=== PATIENT | male | born 1985 | race Caucasian/White ===

== ENCOUNTER 2017-05-08 11:22 | Inpatient (IN) | payer OTHER ==
[2017-05-08] MEDS ORDERED: MAG HYDROX/AL HYDROX/SIMETH 30 ML LIQUID UDC PO PRN (20:00)
[2017-05-08] MEDS ORDERED: HYDROXYZINE PAMOATE 25 MG CAPSULE PO PRN (20:00)
[2017-05-08] MEDS ORDERED: DICYCLOMINE HCL 20 MG TABLET PO PRN (20:00)
[2017-05-08] MEDS ORDERED: LORAZEPAM 2 MG/1 ML VIAL IM PRN (20:00)
[2017-05-08] MEDS ORDERED: ONDANSETRON 4 MG/2 ML VIAL IM PRN (20:00)
[2017-05-08] MEDS ORDERED: LOPERAMIDE HCL 2 MG CAPSULE PO PRN ×2 (20:00)
[2017-05-08] MEDS ORDERED: METHOCARBAMOL 750 MG TABLET PO PRN (20:00)
[2017-05-08] MEDS ORDERED: MIRALAX 17 GM POWD.PACK PO PRN (20:00)
[2017-05-08] MEDS ORDERED: ONDANSETRON ODT 4 MG TAB.RAPDIS SL PRN (20:00)
[2017-05-08] MEDS ORDERED: LORAZEPAM 1 MG TABLET PO PRN ×2 (20:00)
[2017-05-08] MEDS ORDERED: IBUPROFEN 600 MG TABLET PO PRN (20:00)
[2017-05-08] MEDS ORDERED: diphenhydrAMINE 50 MG CAPSULE PO PRN (20:00)
[2017-05-08] MEDS ORDERED: ACETAMINOPHEN 325 MG TABLET PO PRN (20:00)
[2017-05-08] MEDS ORDERED: MAGNESIUM HYDROXIDE 30 ML LIQUID UDC PO PRN (20:00)
[2017-05-08] MEDS ORDERED: hydrALAZINE HCL 25 MG TABLET PO PRN (20:00)
[2017-05-08] MEDS ORDERED: THIAMINE HCL 200 MG/2 ML VIAL IM ONE (20:00)
[2017-05-08 20:36] LABS: BASOPHILS # (AUTO) 0.3 K/uL (0.0-8.0); BASOPHILS % (AUTO) 2.3 % (0.0-2.0); EOSINOPHILS % (AUTO) 0.4 % (0.0-7.0); HEMOGLOBIN 15.3 G/DL (14.0-18.0); LYMPHOCYTES % (AUTO) 17.7 % (20.5-51.5); MEAN CORPUSCULAR HEMOGLOBIN 29.3 UUG (27.0-31.0); MEAN CORPUSCULAR HGB CONC 33 g/dL (32.0-37.0); MEAN CORPUSCULAR VOLUME 87.9 FL (82.0-92.0); MONOCYTES # (AUTO) 1.2 K/UL (0.1-1.30); MONOCYTES % (AUTO) 10.3 % (0.0-11.0); NEUTROPHILS % (AUTO) 69.3 % (38.5-71.5); PLATELET COUNT (AUTO) 257 K/UL (150-450); RED BLOOD CELL COUNT(AUTO) 5.23 MIL/UL (4.7-6.1); WHITE BLOOD COUNT (AUTO) 11.5 K/UL (4.0-11.2)
[2017-05-08 20:53] LABS: ETHANOL < 3 MG/DL (0-0)
[2017-05-08 20:58] LABS: CARBON DIOXIDE 26 mmol/L (21-32); CHLORIDE 101 mmol/L (98-107); CREATININE 1.2 mg/dL (0.6-1.3); GLUCOSE 116 mg/dL (74-106); POTASSIUM 3.2 mmol/L (3.5-5.1); UREA NITROGEN, BLOOD 15 mg/dL (7-18)
[2017-05-08 20:59] LABS: ALANINE AMINOTRANSFERASE 36 U/L (16-63); ALKALINE PHOSPHATASE 73 U/L (50-136); AMYLASE 37 U/L (25-115); ASPARTATE AMINOTRANSFERASE 58 U/L (15-37); BILIRUBIN,TOTAL 1.1 mg/dL (0.2-1.0); MAGNESIUM 1.9 mg/dL (1.8-2.4)
[2017-05-08] MEDS ORDERED: LORAZEPAM 1 MG TABLET PO ONE (21:00)
[2017-05-08 21:08] LABS: LIPASE 82 U/L (73-393)
[2017-05-08 21:25] LABS: THYROID STIMULATING HORMONE 0.792 mIU/mL (0.358-3.740)
[2017-05-09 08:43] LABS: *AMPHETAMINE, URINE POSITIVE (NEGATIVE); *BARBITURATE, URINE NEGATIVE (NEGATIVE); *CANNABINOID, URINE NEGATIVE (NEGATIVE); *COCCAINE, URINE NEGATIVE (NEGATIVE); *OPIATE, URINE POSITIVE (NEGATIVE); *PHENCYCLIDINE SCREEN,URINE NEGATIVE (NEGATIVE)
[2017-05-09] MEDS ORDERED: MULTIVITAMINS,THERAPEUTIC TABLET PO SCH (09:00)
[2017-05-09] MEDS ORDERED: BUPRENORPHINE HCL 2 MG TAB.SUBL SL SCH (09:00)
[2017-05-09] MEDS ORDERED: THIAMINE HCL 100 MG TABLET PO SCH (09:00)
[2017-05-09] MEDS ORDERED: TUBERCULIN,PURIF.PROT.DERIV. 5 TU/0.1 ML TEST ID ONE (09:00)
[2017-05-09] MEDS ORDERED: FOLIC ACID 1 MG TABLET PO SCH (09:00)
[2017-05-09] MEDS ORDERED: GABAPENTIN 300 MG CAPSULE PO SCH (09:00)
[2017-05-09] MEDS ORDERED: LORAZEPAM 1 MG TABLET PO SCH (09:00)
[2017-05-09] MEDS ORDERED: ASPI81TA31 PO (11:27)
[2017-05-10] MEDS ORDERED: BUPRENORPHINE HCL 2 MG TAB.SUBL SL SCH (09:00)
[2017-05-10] MEDS ORDERED: LORAZEPAM 1 MG TABLET PO SCH (09:00)
[2017-05-11] MEDS ORDERED: LORAZEPAM 1 MG TABLET PO SCH (09:00)
[2017-05-11] MEDS ORDERED: BUPRENORPHINE HCL 2 MG TAB.SUBL SL SCH ×2 (09:00→15:00)
[2017-05-12] MEDS ORDERED: LORAZEPAM 1 MG TABLET PO SCH (09:00)
[2017-05-12] MEDS ORDERED: BUPRENORPHINE HCL 2 MG TAB.SUBL SL SCH (09:00)
[2017-05-13] MEDS ORDERED: BUPRENORPHINE HCL 2 MG TAB.SUBL SL SCH (09:00)
[2017-05-13] MEDS ORDERED: LORAZEPAM 1 MG TABLET PO SCH (09:00)
== END 2017-05-08 19:30 | disposition other institution (70) | DRG 897 ==
LOC: SRC 18:43
PROVIDERS: ADMIT Internal Medicine; ATTEND Internal Medicine
PROC: HZ2ZZZZ Detoxification Services for Substance Abuse Treatment (ICD-10-PCS; principal; 2017-05-08)
DX: F10.220 Alcohol dependence with intoxication, uncomplicated (principal); I20.1 Angina pectoris with documented spasm; F13.229 Sedative, hypnotic or anxiolytic dependence with intoxication, unspecified; Y90.9 Presence of alcohol in blood, level not specified; F11.229 Opioid dependence with intoxication, unspecified; F17.210 Nicotine dependence, cigarettes, uncomplicated; B19.20 Unspecified viral hepatitis C without hepatic coma; F41.9 Anxiety disorder, unspecified; F39 Unspecified mood [affective] disorder; Z59.1 Inadequate housing; F15.129 Other stimulant abuse with intoxication, unspecified
CPT/HCPCS: 80307; 83690; 83735; 84443; 85025; 86592; 86705; 86803; 87340; 87806; G0480

== ENCOUNTER 2017-05-08 19:46 | Inpatient (IN) | payer OTHER ==
[~2017-05-08] VITALS: Ht 180.3 cm; Wt 1.4 kg
[2017-05-08] MEDS ORDERED: LORAZEPAM 2 MG/1 ML VIAL IV ONE ×2 (20:30→21:45)
[2017-05-08] MEDS ORDERED: ASPIRIN 325 MG TABLET PO ONE (20:30)
--- NOTE | 2017-05-08 20:34 | NUR ---
Patient BIB [facility] c/o CP. Patient is very hyperactive, withdrawing from medications, unable to remain still. [facility] will remain with patient during evaluation. To room 5B.
[2017-05-08 20:39] LABS: WHITE BLOOD COUNT (AUTO) 11.5 K/UL (4.0-11.2)
[2017-05-08 20:40] LABS: BASOPHILS % (AUTO) 2.3 % (0.0-2.0); EOSINOPHILS % (AUTO) 0.4 % (0.0-7.0); HEMOGLOBIN 15.3 G/DL (14.0-18.0); LYMPHOCYTES % (AUTO) 17.7 % (20.5-51.5); MEAN CORPUSCULAR HEMOGLOBIN 29.3 UUG (27.0-31.0); MEAN CORPUSCULAR HGB CONC 33 g/dL (32.0-37.0); MEAN CORPUSCULAR VOLUME 87.9 FL (82.0-92.0); MONOCYTES % (AUTO) 10.3 % (0.0-11.0); NEUTROPHILS % (AUTO) 69.3 % (38.5-71.5); PLATELET COUNT (AUTO) 257 K/UL (150-450); RED BLOOD CELL COUNT(AUTO) 5.23 MIL/UL (4.7-6.1)
[2017-05-08 20:41] LABS: BASOPHILS # (AUTO) 0.3 K/uL (0.0-8.0); MONOCYTES # (AUTO) 1.2 K/UL (0.1-1.30)
[2017-05-08] MEDS ORDERED: IV NORMAL SALINE 1000 ML BAG IV ONE ×2 (20:45→23:15)
[2017-05-08] MEDS ORDERED: ASPIRIN 325 MG TABLET ONE (20:49)
[2017-05-08] MEDS ORDERED: LORAZEPAM 2 MG/1 ML VIAL ONE ×2 (20:50→21:48)
[2017-05-08 20:51] LABS: CREATININE 1.2 mg/dL (0.6-1.3); POTASSIUM 3.3 mmol/L (3.5-5.1)
[2017-05-08 21:04] LABS: BILIRUBIN,DIRECT 0.2 mg/dL (0.0-0.2); BILIRUBIN,TOTAL 1.1 mg/dL (0.2-1.0); TOTAL PROTEIN, SERUM 8.1 g/dL (6.4-8.2)
[2017-05-08] MEDS ORDERED: IOHEXOL 350 100 ML INFUS..BTL ONE (21:22)
[2017-05-08] MEDS ORDERED: IV NORMAL SALINE 250 ML IV ONE (21:22)
[2017-05-08] MEDS ORDERED: NORMAL SALINE FLUSH 10 ML DISP.SYRIN ONE (21:22)
--- NOTE | 2017-05-08 22:10 | NUR ---
Patient accidentally removed IV line, ERMD notified, New IV placed.
[2017-05-08] MEDS ORDERED: ONDANSETRON 4 MG/2 ML VIAL IV ONE (22:30)
[2017-05-08] MEDS ORDERED: ONDANSETRON 4 MG/2 ML VIAL ONE (22:35)
[2017-05-08 23:24] LABS: *BILIRUBIN,URIN 2+ (NEGATIVE); *BLOOD, URINE NEGATIVE (NEGATIVE); *CLARITY,URINE CLEAR (CLEAR); *COLOR,URINE AMBER (YELLOW); *KETONES,URINE TRACE (NEGATIVE); *PROTEIN,URINE 2+ (NEGATIVE); LEUKOCYTE ESTERASE ,URINE NEGATIVE (NEGATIVE); NITRITE, URINE NEGATIVE (NEGATIVE); PH,URINE 5.5 (5.0-8.0); UGLUCOSE NEGATIVE (NEGATIVE)
--- NOTE | 2017-05-08 23:37 | NUR ---
Patient continually moving around in room. Unable to sit still at this time for CT scan still.
[2017-05-08 23:38] LABS: BACTERIA,URINE FEW /HPF (NONE SEEN); RBC,URINE 0-3 /HPF (0-3); SQUAMOUS EPITHELIAL CELL,UR FEW /HPF (NONE SEEN); WBC,URINE 0-3 /HPF (0-3)
[2017-05-08] MEDS ORDERED: OLANZAPINE 10 MG VIAL IM ONE (23:56)
[2017-05-09] MEDS ORDERED: MAGNESIUM HYDROXIDE 30 ML LIQUID UDC PO PRN
[2017-05-09] MEDS ORDERED: Z GUARD REMEDY PASTE 57 GM TUBE TOP PRN
[2017-05-09] MEDS ORDERED: diphenhydrAMINE 50 MG/1 ML VIAL IV ONE
[2017-05-09] MEDS ORDERED: OLANZAPINE 10 MG VIAL IM ONE
[2017-05-09] MEDS ORDERED: ONDANSETRON 4 MG/2 ML VIAL IV PRN
[2017-05-09] MEDS ORDERED: ACETAMINOPHEN 325 MG TABLET PO PRN
[2017-05-09] MEDS ORDERED: NITROGLYCERIN 0.4 MG/TAB BOTTLE SL PRN
[2017-05-09] MEDS ORDERED: HYDROCODONE/APAP 5-325MG TABLET PO PRN
[2017-05-09] MEDS ORDERED: diphenhydrAMINE 50 MG/1 ML VIAL ONE (00:05)
--- NOTE | 2017-05-09 01:00 | NUR ---
nsg: pt received fr er, awake but confused, agitated, delusional. director security risk management came up with pt and er nurse. pt anxious, shaky, flushed. left on the aurora chair. tele, ST. unable to obtain bp bec pt continously moving. 1:1 sitter at the bedside.
--- NOTE | 2017-05-09 01:12 | NUR ---
Pt. admitted to TELE, under care of Dr. Hanley Belongs List completed
[2017-05-09] MEDS: LORAZEPAM 2 MG/1 ML VIAL IV PRN ×3 (01:43→17:24)
[2017-05-09] MEDS ORDERED: POTASSIUM CHLORIDE 20 MEQ TAB.PRT.SR PO ONE (01:45)
[2017-05-09] MEDS ORDERED: LORAZEPAM 2 MG/1 ML VIAL ONE (01:51)
[2017-05-09] MEDS: IV NS 1000 ML 1,000 ML IV PRN ×2 (02:30→14:07)
[2017-05-09] MEDS ORDERED: HALOPERIDOL LACTATE 5 MG/1 ML VIAL IM STA (03:44)
--- NOTE | 2017-05-09 03:45 | NUR ---
nsg: pt awake, more combative, anxious, trying to get out of the aurora chair and wants to leave. code kath called. notified Dr. Escobar, received order for haldol 5mg im x 1, if med does not work, may give addtl 5mg. off tele, cont to monitor.
[2017-05-09] MEDS ORDERED: HALOPERIDOL LACTATE 5 MG/1 ML VIAL ONE (03:55)
--- NOTE | 2017-05-09 04:20 | NUR ---
nsg: pt asleep now. tele, SR hr 100. 1:1 sitter at the bedside.
[2017-05-09 04:41] VITALS: BP 119/78
--- NOTE | 2017-05-09 05:35 | NUR ---
nsg: pt asleep at this time. sitter at the bedside. cont to monitor.
--- NOTE | 2017-05-09 08:00 | NUR ---
Pt waking up. IV on right hand intact. IV infusing as ordered. Pt had good appetite for breakfast. Pt hallucinating and talking to the wall about "why he was not invited by his friends?" Asked who he was talking to he said "my friend right here." and point to the wall. Attempted to reorient patient to time and place. Pt cooperative on blood draws and talking his pills. Pt denies any c/o pain. 1:1 sitter at bedside discussed importance of fall precautions and proper pain management for pt and notifiy nursing of any cp - pt agreeable with plan of care.
[2017-05-09] MEDS: PANTOPRAZOLE SODIUM 40 MG TABLET.DR PO SCH (08:11)
[2017-05-09] MEDS: ASPIRIN 81 MG TAB.CHEW PO SCH (08:11)
--- NOTE | 2017-05-09 08:15 | NUR ---
Pt starting to become restless and attempting to pull out IV tubes. Wrapped IV tube with kerlix, decreased stimuli, offered urinal, and distracted pt with TV. will monitor pt 1:1 at bedside.
--- NOTE | 2017-05-09 08:51 | NUR ---
Pt pulled IV out. Restarted IV on left F/A 20gauge. Prior interventions non effective. Ativan given for restlessness. Will monitor pt. Sb applied and got Telephone order from DR LINDA Avendaño.
--- NOTE | 2017-05-09 09:00 | NUR ---
Spoke with extension worker for pt evaluation for crisis team? Awaiting for psych consult as well.
[2017-05-09 10:24] LABS: BASOPHILS % (AUTO) 0.4 % (0.0-2.0); HEMOGLOBIN 14.2 G/DL (14.0-18.0); LYMPHOCYTES # (AUTO) 0.8 K/UL (0.8-4.8); MEAN CORPUSCULAR HGB CONC 33 g/dL (32.0-37.0); MONOCYTES # (AUTO) 0.6 K/UL (0.1-1.30); MONOCYTES % (AUTO) 8.6 % (0.0-11.0)
[2017-05-09 10:27] LABS: EOSINOPHILS # (AUTO) 0.1 K/uL (0.0-0.7); EOSINOPHILS % (AUTO) 0.7 % (0.0-7.0); LYMPHOCYTES % (AUTO) 11.2 % (20.5-51.5); MEAN CORPUSCULAR HEMOGLOBIN 29.2 UUG (27.0-31.0); MEAN CORPUSCULAR VOLUME 88.7 FL (82.0-92.0); NEUTROPHILS % (AUTO) 79.1 % (38.5-71.5); PLATELET COUNT (AUTO) 229 K/UL (150-450); RED BLOOD CELL COUNT(AUTO) 4.85 MIL/UL (4.7-6.1)
[2017-05-09 10:30] LABS: WHITE BLOOD COUNT (AUTO) 7.5 K/UL (4.0-11.2)
[2017-05-09 10:42] LABS: MAGNESIUM 2.1 mg/dL (1.8-2.4); PHOSPHOROUS 3.6 mg/dL (2.5-4.9)
[2017-05-09 11:00] LABS: THYROID STIMULATING HORMONE 0.404 mIU/mL (0.358-3.740)
[2017-05-09] MEDS ORDERED: ASPI81TA31 PO (11:27)
--- NOTE | 2017-05-09 12:00 | NUR ---
Pt is in no acute distress pt sleeping. Call light is within reach.
[2017-05-09 14:00] VITALS: BP 120/81
[2017-05-09] MEDS ORDERED: IV NS 1000 ML 1,000 ML IV PRN (15:15)
[2017-05-09 15:55] VITALS: BP 104/83
--- NOTE | 2017-05-09 17:24 | NUR ---
Pt started to get oob and hitting sitter at bedside. Decreased stimuli, talk with the pt on what he wants - pt is hallucinating and started talking to the wall again. Distracted pt but all prior interventions was not effective. Ativan given. b/p 118/78- HR 85 - resp 18. Will continue to monitor pt. 1:1 sitter at bedside.
--- NOTE | 2017-05-09 18:42 | NUR ---
Pt is sleeping resp 18. Pt is in no acute distress. Pt refused to go back to bed and wants to stay on the Janak chair.
--- NOTE | 2017-05-09 19:30 | NUR ---
nsg: pt received sitting on the aurora chair, sleeping. tele, SR. 1:1 sitter at the bedside for safety. on cont ivf. cont to monitor.
[2017-05-09 20:02] VITALS: BP 119/70
--- NOTE | 2017-05-09 21:00 | NUR ---
nsg: pt woke up, transferred to bed. requested food. refused ivf. cont to monitor.
[2017-05-10] VITALS: BP 123/84
--- NOTE | 2017-05-10 | NUR ---
nsg: pt comfortable sleeping in bed. cont to monitor.
[2017-05-10 04:00] VITALS: BP 115/82
--- NOTE | 2017-05-10 05:31 | NUR ---
nsg: all needs attended. no acute distress noted. tele, SR. 1:1 sitter at the bedside.
[2017-05-10] MEDS: PANTOPRAZOLE SODIUM 40 MG TABLET.DR PO SCH (06:28)
[2017-05-10 06:41] LABS: BASOPHILS % (AUTO) 0.4 % (0.0-2.0); EOSINOPHILS # (AUTO) 0.1 K/uL (0.0-0.7); EOSINOPHILS % (AUTO) 1.7 % (0.0-7.0); HEMATOCRIT 40.4 % (40-50); HEMOGLOBIN 13.7 G/DL (14.0-18.0); LYMPHOCYTES # (AUTO) 1.4 K/UL (0.8-4.8); LYMPHOCYTES % (AUTO) 18.9 % (20.5-51.5); MEAN CORPUSCULAR HEMOGLOBIN 30.3 UUG (27.0-31.0); MEAN CORPUSCULAR HGB CONC 34 g/dL (32.0-37.0); MEAN CORPUSCULAR VOLUME 89.5 FL (82.0-92.0); MONOCYTES # (AUTO) 0.6 K/UL (0.1-1.30); MONOCYTES % (AUTO) 8.8 % (0.0-11.0); NEUTROPHILS # (AUTO) 5.1 K/UL (1.8-8.9); NEUTROPHILS % (AUTO) 70.2 % (38.5-71.5); PLATELET COUNT (AUTO) 235 K/UL (150-450); RED BLOOD CELL COUNT(AUTO) 4.51 MIL/UL (4.7-6.1); WHITE BLOOD COUNT (AUTO) 7.2 K/UL (4.0-11.2)
[2017-05-10 06:51] LABS: MAGNESIUM 1.9 mg/dL (1.8-2.4); PHOSPHOROUS 2.4 mg/dL (2.5-4.9)
--- NOTE | 2017-05-10 07:30 | NUR ---
Sleeping, not in distress. 1:1 sitter at bedside. IVF off. Mittens off.
[2017-05-10] MEDS: ASPIRIN 81 MG TAB.CHEW PO SCH (08:24)
[2017-05-10 11:38] VITALS: BP 112/80
[2017-05-10] MEDS ORDERED: NEUTRA PHOS PACKET PO ONE (13:30)
--- NOTE | 2017-05-10 14:37 | NUR ---
With discharge order to [facility]. Saline lock removed. DC instruction given to patient, verbalized understanding. Report given to Ashia of [facility]. Discharge per wheelchair in fair condition, not in distress
== END 2017-05-10 14:40 | DRG 918 ==
LOC: ER 19:50 → TELE 05-09 00:01 → MED 05-10 11:23
DX: T40.1X1A Poisoning by heroin, accidental (unintentional), initial encounter (principal); M62.82 Rhabdomyolysis; T43.621A Poisoning by amphetamines, accidental (unintentional), initial encounter; F10.20 Alcohol dependence, uncomplicated; F19.10 Other psychoactive substance abuse, uncomplicated; E87.6 Hypokalemia; Y90.9 Presence of alcohol in blood, level not specified; Z86.19 Personal history of other infectious and parasitic diseases; I45.10 Unspecified right bundle-branch block; F41.9 Anxiety disorder, unspecified; T51.91XA Toxic effect of unspecified alcohol, accidental (unintentional), initial encounter; F13.10 Sedative, hypnotic or anxiolytic abuse, uncomplicated; Y92.009 Unspecified place in unspecified non-institutional (private) residence as the place of occurrence of the external cause; R07.89 Other chest pain; F17.200 Nicotine dependence, unspecified, uncomplicated
CPT/HCPCS: 36415; 70030-TC; 71010; 83735; 84100; 84443; 85025; 87040; 93005; 93307; J1200; J1630; J2060; J2358; J2405; J3490; J7050; Q9967

== ENCOUNTER 2017-05-09 07:28 | Inpatient (IN) | payer OTHER ==
[~2017-05-09] VITALS: Ht 180.3 cm; Wt 86.2 kg
[2017-05-09] MEDS ORDERED: ASPI81TA31 PO (11:27)
--- NOTE | 2017-05-10 14:45 | NUR ---
PRE-ADMISSION NOTE Intake assessment completed, patient is a 31 year old male, alert and oriented. Prior to admission to [facility] patient was admitted to med Surg unit 2nd floor [facility] for c/o chest pain. Patient was discharged today. Currently patient denies any chest pain. Patient with vital signs: bp: 141/95 heart rate: 94, t: 98.0, o2 sat: 96%. Patient weights 5 feet 11 inches and weighs 190 lbs. Patient denies pain/discomfort. Patient denies any drug allergies. Patient reports he is here to detox off of: Xanax, heroin, methamphetamine and alcohol. Patient was educated regarding unit protocols and policies, with good verbal understanding. Patient calm and cooperative, patient brought unknown home medications, prescriptions bottle with unknown pills in them, denies taking any home medications.
[2017-05-10 15:52] LABS: *AMPHETAMINE, URINE POSITIVE (NEGATIVE); *BARBITURATE, URINE NEGATIVE (NEGATIVE); *CANNABINOID, URINE NEGATIVE (NEGATIVE); *COCCAINE, URINE NEGATIVE (NEGATIVE); *OPIATE, URINE POSITIVE (NEGATIVE); *PHENCYCLIDINE SCREEN,URINE NEGATIVE (NEGATIVE)
--- NOTE | 2017-05-10 16:19 | NUR ---
ADMISSION Patient was admitted from 2nd floor medical surgical unit at [facility], d/t c/o chest pain, Was discharged 05/10/2017 at 1430. Patient arrived to [facility] recovery unit at 1500, patient is a 31 year old male from [place], currently residing a sober living home. Patient oriented to unit and to room, education regarding call light use was provided. Patient denies any drug or food allergies. Patients body assessment completed, noted with intact skin, noted with small bruise [id number] on left hip area. Body search completed by male intake, no contraband found. Patient is alert and oriented x4. reports he is here to detox off of: Xanax-6mg daily by mouth for 4 weeks, last used 6mg on 05/09/2017. heroin-1 gram daily IV for 4 weeks, last used 1 gram on 05/09/2017; methamphetamine 0.5grams daily for 4 weeks, last used 05/09/2017; etoh- 1 pint of whiskey daily for 4 weeks, last used 05/09/2017. Patient denies taking any home medications. Patient reports he was diagnosed with anxiety and depression at the age of 16, reports his psychiatrist is Dr. Graves in [place], does not know the phone number or name of office. Reports his Primary care physician is Dr. Ernie Gustafson in [place], does not know the phone number of name of office. Patient reports history of seizure, reports 7 years ago he had a seizure d/t benzodiazepine withdrawal. Patient current in bed, presenting with: heart rate of 94, c/o chills, difficulty sitting still, severe bone and joint aches, moist eyes, tremors that can be felt but not seen, anxiety, and goosebump, barely sweating, mild agitation and mild head fullness with ciwa score of: 9. and cow score of: 15. Patients pupils are equal and reactive to light, 3mm. Abdomen is soft and non distended. bowel sounds heard in all quadrants. Patients respirations are even and unlabored, no sob, lungs clear upon auscultation. Patient was seen by Dr. Santana at 1545. Psychiatrist aware of new admission,safety measures in place. call light with in reach, will continue to monitor closely.
[2017-05-10 16:30] VITALS: BP 108/67
[2017-05-10] MEDS ORDERED: LORAZEPAM 2 MG/1 ML VIAL IM PRN (16:30)
[2017-05-10] MEDS ORDERED: ONDANSETRON 4 MG/2 ML VIAL IM PRN (16:30)
[2017-05-10] MEDS ORDERED: IBUPROFEN 400 MG TABLET PO PRN (16:30)
[2017-05-10] MEDS ORDERED: DICYCLOMINE HCL 20 MG TABLET PO PRN (16:30)
[2017-05-10] MEDS ORDERED: MIRALAX 17 GM POWD.PACK PO PRN (16:30)
[2017-05-10] MEDS ORDERED: CLONIDINE HCL 0.1 MG TABLET PO PRN (16:30)
[2017-05-10] MEDS ORDERED: LOPERAMIDE HCL 2 MG CAPSULE PO PRN ×2 (16:30)
[2017-05-10] MEDS ORDERED: THIAMINE HCL 200 MG/2 ML VIAL IM ONE (16:30)
[2017-05-10] MEDS ORDERED: ONDANSETRON ODT 4 MG TAB.RAPDIS SL PRN (16:30)
[2017-05-10] MEDS ORDERED: LORAZEPAM 1 MG TABLET PO PRN ×2 (16:30)
[2017-05-10] MEDS ORDERED: BUPRENORPHINE HCL 2 MG TAB.SUBL SL PRN (16:45)
--- NOTE | 2017-05-10 16:45 | NUR ---
PRN IMODIUM Patient presenting with diarrhea two episodes administered Imodium as ordered 4mg Po, will monitor effectiveness.
[2017-05-10] MEDS: LORAZEPAM 1 MG TABLET PO SCH ×2 (17:05→21:17)
[2017-05-10] MEDS: BUPRENORPHINE HCL 2 MG TAB.SUBL SL SCH ×2 (17:07→21:17)
[2017-05-10 17:27] LABS: ETHANOL < 3 MG/DL (0-0)
[2017-05-10 17:31] LABS: ALANINE AMINOTRANSFERASE 31 U/L (16-63); ALKALINE PHOSPHATASE 60 U/L (50-136); AMYLASE 52 U/L (25-115); ASPARTATE AMINOTRANSFERASE 31 U/L (15-37); BASOPHILS % (AUTO) 0.3 % (0.0-2.0); BILIRUBIN,TOTAL 0.2 mg/dL (0.2-1.0); CARBON DIOXIDE 25 mmol/L (21-32); CHLORIDE 106 mmol/L (98-107); CREATININE 0.9 mg/dL (0.6-1.3); EOSINOPHILS # (AUTO) 0.1 K/uL (0.0-0.7); EOSINOPHILS % (AUTO) 1.1 % (0.0-7.0); GLUCOSE 101 mg/dL (74-106); HEMATOCRIT 41.6 % (40-50); HEMOGLOBIN 14.1 G/DL (14.0-18.0); LIPASE 267 U/L (73-393); LYMPHOCYTES # (AUTO) 1.5 K/UL (0.8-4.8); LYMPHOCYTES % (AUTO) 20.2 % (20.5-51.5); MAGNESIUM 1.8 mg/dL (1.8-2.4); MEAN CORPUSCULAR HEMOGLOBIN 30.1 UUG (27.0-31.0); MEAN CORPUSCULAR HGB CONC 34 g/dL (32.0-37.0); MEAN CORPUSCULAR VOLUME 88.7 FL (82.0-92.0); MONOCYTES # (AUTO) 0.8 K/UL (0.1-1.30); MONOCYTES % (AUTO) 10.1 % (0.0-11.0); NEUTROPHILS # (AUTO) 5.2 K/UL (1.8-8.9); NEUTROPHILS % (AUTO) 68.3 % (38.5-71.5); PLATELET COUNT (AUTO) 238 K/UL (150-450); POTASSIUM 3.8 mmol/L (3.5-5.1); RED BLOOD CELL COUNT(AUTO) 4.69 MIL/UL (4.7-6.1); TOTAL PROTEIN, SERUM 6.6 g/dL (6.4-8.2); UREA NITROGEN, BLOOD 4 mg/dL (7-18); WHITE BLOOD COUNT (AUTO) 7.6 K/UL (4.0-11.2)
--- NOTE | 2017-05-10 17:45 | NUR ---
IMODIUM REASSESSMENT Patient reports medication effective no further episodes of diarrhea noted.
[2017-05-10 17:52] LABS: THYROID STIMULATING HORMONE 0.111 mIU/mL (0.358-3.740)
--- NOTE | 2017-05-10 18:54 | NUR ---
END OF SHIFT Patient alert and oriented x4, vital signs were stable during shift. patient compliant with therapeutic plan of care. 1700 assessment patient presented with: c/o chills, difficulty sitting still, severe bone and joint aches, moist eyes, tremors that can be felt but not seen, anxiety, and goosebump, barely sweating, mild agitation and mild head fullness with ciwa score of: 9. and cow score of: 15. Patient was started on a 5 day Ativan taper and 5 day Subutex taper as ordered. first dose administered at 1645 as ordered. Administered B1 injection as ordered, well tolerated. Administered PRN Imodium as ordered 4mg Po at 1645 for two episodes of diarrhea, medication effective one hour post administration. Patient encouraged to attend group therapies/sessions to learn new coping skills to prevent relapse. patient denies any SI/HI. safety measures in place. call light kept with in reach. patient endorsed to shift superintendent nurse, all pertinent information discussed. will continue to monitor closely.
--- NOTE | 2017-05-10 19:15 | NUR ---
START OF SHIFT Received 31 year old male patient admitted on 05/10/17 for Xanax, ETOH, Heroin and Methamphetamine dependency. Pt is full code with DHARA. He reports a PMHx of anxiety, depression and seizure 7 years ago related to benzo withdrawal. Pt on modified Ativan and Subutex taper started today and tolerating well. Pt is alert and oriented x4, breathing is even and unlabored, safety measures in place. Will continue to monitor.
[2017-05-10 20:00] VITALS: BP 110/67
[2017-05-10] MEDS ORDERED: GABAPENTIN 300 MG CAPSULE PO SCH (21:00)
[2017-05-10] MEDS: GABAPENTIN 300 MG CAPSULE PO SCH (21:17)
[2017-05-11 00:36] VITALS: BP 105/60
[2017-05-11 04:00] VITALS: BP 112/65
--- NOTE | 2017-05-11 04:00 | NUR ---
CIWA DEFERRED CIWA deferred d/t pt lying in bed with eyes closed noted to be asleep. Breathing is even and unlabored, respirations 16, safety measures in place. Will continue to monitor.
--- NOTE | 2017-05-11 07:22 | NUR ---
END OF SHIFT Pt is a 31 year old male patient admitted on 05/10/17 for Xanax, ETOH, Heroin and Methamphetamine dependency. Pt is full code with NKA. Pt continues on modified Ativan and Subutex taper started on 05/10/17 and tolerating well. He did not receive or request PRN medications during shift. He slept a total of 8 hrs, Intake:1801mL Void:x2 BM:x2 COWS:8, CIWA:4. Pt remains alert and oriented x4, breathing is even and unlabored, safety measures in place. Endorsed to oncoming shift.
[2017-05-11 07:32] LABS: CREATININE 0.9 mg/dL (0.6-1.3); POTASSIUM 2.9 mmol/L (3.5-5.1)
[2017-05-11 08:00] VITALS: BP 122/76
--- NOTE | 2017-05-11 08:15 | NUR ---
START OF SHIFT: RECEIVED PT A/O X 4. HE PRESENTS WITH ANXIOUS MOOD AND CONSTRICTED AFFECT. PT C/O ANXIETY,BODY ACHES,SWEATS,CHILLS AND RESTLESSNESS. COWS 9 CIWA 4. HE DENIES CHEST PAIN AT THIS TIME. ATIVAN / SUBUTEX TAPER IN PROGRESS. ENCOURAGED INCREASED FLUIDS AND REST TODAY. WILL CONTINUE TO PROVIDE SAFE AND SUPPORTIVE ENVIRONMENT.
[2017-05-11] MEDS ORDERED: 5 DAY TAPER OF LORAZEPAM -SERENITY PROTOCOL PO PRN (09:00)
[2017-05-11] MEDS ORDERED: TUBERCULIN,PURIF.PROT.DERIV. 5 TU/0.1 ML TEST ID ONE (09:00)
[2017-05-11] MEDS: GABAPENTIN 300 MG CAPSULE PO SCH ×3 (09:08→21:37)
[2017-05-11] MEDS: MULTIVITAMINS,THERAPEUTIC TABLET PO SCH (09:08)
[2017-05-11] MEDS: ASPIRIN 81 MG TAB.CHEW PO SCH (09:09)
[2017-05-11] MEDS: FOLIC ACID 1 MG TABLET PO SCH (09:09)
[2017-05-11] MEDS: THIAMINE HCL 100 MG TABLET PO SCH (09:09)
[2017-05-11] MEDS: DOCUSATE SODIUM 250 MG CAPSULE PO SCH (09:09)
[2017-05-11] MEDS: LORAZEPAM 1 MG TABLET PO SCH ×4 (09:10→21:36)
[2017-05-11] MEDS: BUPRENORPHINE HCL 2 MG TAB.SUBL SL SCH ×3 (09:12→21:37)
[2017-05-11 12:00] VITALS: BP 120/75
[2017-05-11] MEDS ORDERED: LIDOCAINE VISCUS 2% 15 ML UDC MM PRN (13:00)
[2017-05-11] MEDS ORDERED: POTASSIUM CHLORIDE 20 MEQ TAB.PRT.SR PO ONE ×2 (15:15→18:00)
--- NOTE | 2017-05-11 15:49 | NUR ---
Therapist encouraged client to attend group therapy, and therapist informed client of the group times (11am and 3:30PM). Client stated that he may go when he is feeling better.
[2017-05-11 16:00] VITALS: BP 127/89
--- NOTE | 2017-05-11 19:15 | NUR ---
START OF SHIFT NOTE : Pt. is 31 year old male admitted on 05/10/17 for Xanax, ETOH, Heroin and Methamphetamine dependency. Pt is full code with NKA. He reports a PMHx of anxiety, depression and seizure 7 years ago related to benzo withdrawal. Pt on modified Ativan and Subutex taper on 05/10/2017 and tolerating well. Pt is alert and oriented x4, breathing is even and unlabored. Safety measures in place. call light kept within reach. patient endorsed to elderly companion nurse, all pertinent information discussed. will continue to monitor closely.
--- NOTE | 2017-05-11 19:47 | NUR ---
END OF SHIFT: PT CONTINUES ON ATIVAN/SUBUTEX TAPER. HE REPORTED SWEATS ANXIETY CHILLS AND BODY ACHES THIS AM BUT STATES THE DETOX MEDS ARE EFFECTIVE. LAST COWS 5 CIWA 3. HE WAS COMPLIANT WITH INCREASED FLUIDS AND REST. WILL PASS SHIFT REPORT TO ONCOMING NURSE.
[2017-05-11 20:00] VITALS: BP 120/87
--- NOTE | 2017-05-12 06:42 | NUR ---
END OF SHIFT NOTE : Pt. is 31 year old male admitted on 05/10/17 for Xanax, ETOH, Heroin and Methamphetamine dependency. Pt is full code with NKA. He reports a PMHx of anxiety, depression and seizure 7 years ago related to benzo withdrawal. Pt on modified Ativan and Subutex taper on 05/10/2017 and tolerating well. Pt is alert and oriented x4, breathing is even and unlabored. Pt remains compliant with the treatment plan. No PRNs were given during my shift. V/S remain WNL. RR=16, even and unlabored, lungs clear upon auscultation, abdomen soft and non- distended. Pt denies nausea, vomiting and diarrhea. LAST COWS= 4, CIWA=3 at 0400 , INTAKE= 500 ml, voided x 2, slept 10 hours. Safety measures in place. call light kept within reach. patient endorsed to value stream coach nurse, all pertinent information discussed. will continue to monitor closely.
--- NOTE | 2017-05-12 07:30 | NUR ---
START OF SHIFT NOTE: Received report from gravel screener nurse. Pt is 31 year old male admitted on 05/10/17 for Xanax, ETOH, Heroin and Methamphetamine dependence. Pt is currently on an Ativan and Valium tapers. Tolerating well. Pt is alert and oriented X4. Color good, skin warm and dry. Respirations even and unlabored. Pt resting in bed. safety precautions observed. Call light within reach. Will continue to monitor.
[2017-05-12 08:00] VITALS: BP 120/87
[2017-05-12 08:06] LABS: HEPATITIS B SURFACE AG Negative (Negative)
[2017-05-12 08:10] LABS: CREATININE 0.9 mg/dL (0.6-1.3); POTASSIUM 3.8 mmol/L (3.5-5.1)
[2017-05-12 08:43] LABS: THYROID STIMULATING HORMONE 1.502 mIU/mL (0.358-3.740)
[2017-05-12] MEDS ORDERED: BUPRENORPHINE HCL 2 MG TAB.SUBL SL SCH (09:00)
--- NOTE | 2017-05-12 09:00 | NUR ---
VSS COWS 9 CIWA 6 c/o body aches, anxiety and sweating
[2017-05-12] MEDS: THIAMINE HCL 100 MG TABLET PO SCH (09:09)
[2017-05-12] MEDS: ASPIRIN 81 MG TAB.CHEW PO SCH (09:10)
[2017-05-12] MEDS: MULTIVITAMINS,THERAPEUTIC TABLET PO SCH (09:10)
[2017-05-12] MEDS: GABAPENTIN 300 MG CAPSULE PO SCH ×3 (09:10→20:19)
[2017-05-12] MEDS: LORAZEPAM 1 MG TABLET PO SCH ×3 (09:10→20:19)
[2017-05-12] MEDS: FOLIC ACID 1 MG TABLET PO SCH (09:10)
[2017-05-12] MEDS: DOCUSATE SODIUM 250 MG CAPSULE PO SCH (09:11)
[2017-05-12 12:57] VITALS: BP 128/85
--- NOTE | 2017-05-12 13:30 | NUR ---
Lab called. + MRSA Pt placed on contact isolation. Dr. Santana notified.
[2017-05-12] MEDS: BUPRENORPHINE HCL 2 MG TAB.SUBL SL SCH ×2 (15:07→20:20)
--- NOTE | 2017-05-12 15:12 | NUR ---
VSS COWS 5 CIWA 4 pt c/o anxiety and sweating mainly.
[2017-05-12 16:53] VITALS: BP 110/74
--- NOTE | 2017-05-12 17:27 | NUR ---
Group attendance was encouraged by therapist. Client did not give a definitive answer regarding if he would attend or not.
--- NOTE | 2017-05-12 18:38 | NUR ---
END OF SHIFT NOTE: Report given to signals intelligence superintendent nurse . Pt is 31 year old male admitted on 05/10/17 for Xanax, ETOH, Heroin and Methamphetamine dependence. Pt is currently on an Ativan and Valium tapers. Tolerating well. Pt is alert and oriented X4. Color good, skin warm and dry. Respirations even and unlabored. Vital signs have remained stable throughout shift. Last COWS 5 CIWA 4 @ 1500. Pt tested + for MRSA. Placed on contact isolation. Pt resting in bed. safety precautions observed. Call light within reach.
--- NOTE | 2017-05-12 19:15 | NUR ---
START OF SHIFT NOTE : Pt. is 31 year old male admitted on 05/10/17 for Xanax, ETOH, Heroin and Methamphetamine dependency. Pt is full code with NKA. He reports a PMHx of anxiety, depression and seizure 7 years ago related to benzo withdrawal. Pt on modified Ativan and Subutex taper on 05/10/2017 and tolerating well. Pt is alert and oriented x4, breathing is even and unlabored. Pt tested + for MRSA. Placed on contact isolation. He confirmed RPR(+) and Hep.C. Safety measures in place. call light kept within reach. patient endorsed to scene shifter nurse, all pertinent information discussed. will continue to monitor closely.
[2017-05-12 20:00] VITALS: BP 127/92
[2017-05-12] MEDS: DOXYCYCLINE HYCLATE 100 MG TABLET PO SCH (20:19)
[2017-05-12] MEDS: MUPIROCIN 2% OINT 22 GM TUBE NS SCH ×2 (20:29→20:32)
[2017-05-13] VITALS: BP 123/84
--- NOTE | 2017-05-13 06:52 | NUR ---
END OF SHIFT NOTE : Pt. is 31 year old male admitted on 05/10/17 for Xanax, ETOH, Heroin and Methamphetamine dependency. Pt is full code with NKA. He reports a PMHx of anxiety, depression and seizure 7 years ago related to benzo withdrawal. Pt on modified Ativan and Subutex taper on 05/10/2017 and tolerating well. Pt is alert and oriented x4, breathing is even and unlabored. Pt tested + for MRSA. Placed on contact isolation. He confirmed RPR(+) and Hep.C. Pt remains compliant with the treatment plan. No PRNs were given during my shift. V/S remain WNL. RR=16, even and unlabored, lungs clear upon auscultation, abdomen soft and non- distended. Pt denies nausea, vomiting and diarrhea. LAST CIWA=3 ,COWS=3 at 0400 , INTAKE= 2730 ml, voided x 2, slept 8 hours. Safety measures in place. call light kept within reach. patient endorsed to power and recovery shift engineer nurse, all pertinent information discussed. will continue to monitor closely.
--- NOTE | 2017-05-13 07:20 | NUR ---
Start Of Shift Received report from shift leader nurse Pt. is 31 year old male admitted on 05/10/17 for Xanax, ETOH, Heroin and Methamphetamine dependency. Pt continues on a 5 day Ativan and 5 day Subutex taper. Pt reports not having any allergies. Pt continues on fall and seizure precautions. Medication Tolerated well. Pt is alert and oriented X4 respirations even unlabored at 18. Encouraged fluids to facilitate with detox process. Last CIWA 3 COWS 3 which was taken at 0400. Pt did not receive any PRN medications last night. Pt slept a total of 7 hours last night. Safety precautions observed. Call light within reach. Will continue to monitor and provide care.
[2017-05-13 08:00] VITALS: BP 123/74
[2017-05-13] MEDS: MUPIROCIN 2% OINT 22 GM TUBE NS SCH ×3 (09:00→20:54)
[2017-05-13] MEDS: GABAPENTIN 300 MG CAPSULE PO SCH ×3 (09:27→20:54)
[2017-05-13] MEDS: MULTIVITAMINS,THERAPEUTIC TABLET PO SCH (09:27)
[2017-05-13] MEDS: DOCUSATE SODIUM 250 MG CAPSULE PO SCH (09:27)
[2017-05-13] MEDS: DOXYCYCLINE HYCLATE 100 MG TABLET PO SCH ×2 (09:27→20:54)
[2017-05-13] MEDS: LORAZEPAM 1 MG TABLET PO SCH ×4 (09:27→20:55)
[2017-05-13] MEDS: THIAMINE HCL 100 MG TABLET PO SCH (09:27)
[2017-05-13] MEDS: FOLIC ACID 1 MG TABLET PO SCH (09:27)
[2017-05-13] MEDS: BUPRENORPHINE HCL 2 MG TAB.SUBL SL SCH ×3 (09:27→20:55)
[2017-05-13] MEDS: ASPIRIN 81 MG TAB.CHEW PO SCH (09:28)
[2017-05-13 12:00] VITALS: BP 125/77
[2017-05-13 16:00] VITALS: BP 123/83
--- NOTE | 2017-05-13 19:15 | NUR ---
START OF SHIFT NOTE : Pt. is 31 year old male admitted on 05/10/17 for Xanax, ETOH, Heroin and Methamphetamine dependency. Pt is full code with NKA. He reports a PMHx of anxiety, depression and seizure 7 years ago related to benzo withdrawal. Pt on modified Ativan and Subutex taper on 05/10/2017 and tolerating well. Pt is alert and oriented x4, breathing is even and unlabored. Pt tested + for MRSA. Placed on contact isolation. He confirmed RPR(+) and Hep.C. Safety measures in place. call light kept within reach. patient endorsed to machinist 2nd shift nurse, all pertinent information discussed. will continue to monitor closely.
--- NOTE | 2017-05-13 19:25 | NUR ---
End Of Shift Pt. is 31 year old male admitted on 05/10/17 for Xanax, ETOH, Heroin and Methamphetamine dependency. Pt continues on a 5 day Ativan and 5 day Subutex taper. Pt reports not having any allergies. Pt continues on fall and seizure precautions. Medication Tolerated well. Pt is alert and oriented X4 respirations even unlabored at 18. Pt remains compliant with the treatment plan. Patient encouraged adequate PO fluid intake as tolerated. Upon assessment patient presented with mild anxiety, and barely sweating with his last COWS score was a 4 and his CIWA was a 3. @1600. Detox medication effective at reducing withdrawal symptoms. Patient encouraged to attend group therapies/sessions to learn new coping skills to recent relapse, patient denies SI/HI. Pt ate all of his meals his total fluid intake was 3902 ml with 7 void and 2 bowel movement Pt did not receive PRN Tylenol medications. Safety measures in place. Call light kept within reach. Patient endorsed to scene shifter nurse, all pertinent information discussed
[2017-05-13 20:00] VITALS: BP 123/82
--- NOTE | 2017-05-14 06:43 | NUR ---
END OF SHIFT NOTE : Pt. is 31 year old male admitted on 05/10/17 for Xanax, ETOH, Heroin and Methamphetamine dependency. Pt is full code with NKA. He reports a PMHx of anxiety, depression and seizure 7 years ago related to benzo withdrawal. Pt on modified Ativan and Subutex taper on 05/10/2017 and tolerating well. Pt is alert and oriented x4, breathing is even and unlabored. Pt tested + for MRSA. Placed on contact isolation. He confirmed RPR(+) and Hep.C. Pt remains compliant with the treatment plan. No PRNs were given during my shift. V/S remain WNL. RR=16, even and unlabored, lungs clear upon auscultation, abdomen soft and non- distended. Pt denies nausea, vomiting and diarrhea. LAST CIWA= 3 ,COWS= 3 at 0400 , DSXCIS=9417 ml, voided x 3, slept 10 hours. Safety measures in place. call light kept within reach. patient endorsed to chef assistant nurse, all pertinent information discussed. will continue to monitor closely.
--- NOTE | 2017-05-14 07:11 | NUR ---
Start Of Shift Received report from community chest officer nurse Pt. is 31 year old male admitted on 05/10/17 for Xanax, ETOH, Heroin and Methamphetamine dependency. Pt continues on a 5 day Ativan and 5 day Subutex taper. Pt reports not having any allergies. Pt continues on fall and seizure precautions. Medication Tolerated well. Pt is alert and oriented X4 respirations even unlabored at 18. Encouraged fluids to facilitate with detox process. Last CIWA 3 COWS 3 which was taken at 0400. Pt did not receive any PRN medications last night. Pt slept a total of 10 hours last night. Safety precautions observed. Call light within reach. Will continue to monitor and provide care.
[2017-05-14 08:00] VITALS: BP 111/82
[2017-05-14] MEDS ORDERED: BUPRENORPHINE HCL 2 MG TAB.SUBL SL SCH (09:00)
[2017-05-14] MEDS: MUPIROCIN 2% OINT 22 GM TUBE NS SCH ×2 (09:00→21:05)
[2017-05-14] MEDS: GABAPENTIN 300 MG CAPSULE PO SCH ×3 (09:22→21:05)
[2017-05-14] MEDS: LORAZEPAM 1 MG TABLET PO SCH ×3 (09:23→21:05)
[2017-05-14] MEDS: ASPIRIN 81 MG TAB.CHEW PO SCH (09:23)
[2017-05-14] MEDS: FOLIC ACID 1 MG TABLET PO SCH (09:23)
[2017-05-14] MEDS: DOCUSATE SODIUM 250 MG CAPSULE PO SCH (09:23)
[2017-05-14] MEDS: DOXYCYCLINE HYCLATE 100 MG TABLET PO SCH ×2 (09:23→21:06)
[2017-05-14] MEDS: MULTIVITAMINS,THERAPEUTIC TABLET PO SCH (09:23)
[2017-05-14] MEDS: THIAMINE HCL 100 MG TABLET PO SCH (09:23)
[2017-05-14 12:00] VITALS: BP 111/72
[2017-05-14 16:00] VITALS: BP 126/83
--- NOTE | 2017-05-14 18:57 | NUR ---
End Of Shift Pt. is 31 year old male admitted on 05/10/17 for Xanax, ETOH, Heroin and Methamphetamine dependency. Pt continues on a 5 day Ativan and 5 day Subutex taper. Pt reports not having any allergies. Pt continues on fall and seizure precautions. Medication Tolerated well. Pt is alert and oriented X4 respirations even unlabored at 18. Pt remains compliant with the treatment plan. Patient encouraged adequate PO fluid intake as tolerated. Upon assessment patient presented with mild anxiety, and barely sweating with his last COWS score was a 2 and his CIWA was a 2. @1600. Detox medication effective at reducing withdrawal symptoms. Patient encouraged to attend group therapies/sessions to learn new coping skills to recent relapse, patient denies SI/HI. Pt ate all of his meals his total fluid intake was 1855 ml with 3 void and 1 bowel movement Pt did not receive PRN Tylenol medications. Safety measures in place. Call light kept within reach. Patient endorsed to restaurant shift leader nurse, all pertinent information discussed
--- NOTE | 2017-05-14 19:30 | NUR ---
START OF SHIFT Pt. is 31 year old male admitted on 05/10/17 for Xanax, ETOH, Heroin and Methamphetamine dependency. Pt continues on a 5 day Ativan and 5 day Subutex taper. Pt is on full code status,regular diet and giles no allergies.Pt continues on fall and seizure precautions. Pt is A/O X 4, is compliant with the treatment plan, encouraged adequate PO fluid intake as tolerated. Last COWS score was a 2 and his CIWA was a 2. @1600. Safety measures in place. Call light kept within reach.Will continue to monitor.
[2017-05-14 20:00] VITALS: BP 134/89
--- NOTE | 2017-05-15 | NUR ---
V/S REFUSED / COWS and CIWA DEFERRED Pt is peacefully sleeping in bed,breathing is even and non labored,no s/s of distress noted,all safety measures in place,will continue to monitor.
--- NOTE | 2017-05-15 04:00 | NUR ---
V/S REFUSED /COWS and CIWA DEFERRED Pt is peacefully sleeping in bed,breathing is even and non labored,no s/s of distress noted,all safety measures in place,will continue to monitor.
--- NOTE | 2017-05-15 06:45 | NUR ---
END OF SHIFT Pt. is 31 year old male admitted on 05/10/17 for Xanax, ETOH, Heroin and Methamphetamine dependency. Pt continues on a 5 day Ativan and 5 day Subutex taper. Pt is on full code status,regular diet and giles no allergies.Pt continues on fall and seizure precautions. Pt is A/O X 4, is compliant with the treatment plan, encouraged adequate PO fluid intake as tolerated. Last COWS score was a 2 and CIWA was a 2. Pt slept 7 hrs,fluid intake was 1250 mls,voided x 3.No PRN meds were given. Safety measures in place. Call light kept within reach.Will continue to monitor
[2017-05-15 08:00] VITALS: BP 117/73
--- NOTE | 2017-05-15 08:10 | NUR ---
START OF SHIFT: RECEIVED PT A/O X 4. HE PRESENTS WITH ANXIOUS MOOD AN CONGRUENT AFFECT. HE REPORTS SOME ANXIETY,RESTLESSNESS AND MILD BODY ACHES. COWS 4 CIWA 2. ATIVAN/SUB TAPER EFFECTIVE TO MANAGE S/S OF W/D. SUBUTEX COMPLETED. PT STATES HE DID NOT SLEEP WELL AND FEELS VERY FATIGUED. GAVE PT PERMISSION TO REST THIS AM BUT ENCOURAGED GROUPS AND ACTIVITIES LATER. ENCOURAGED INCREASED FLUIDS TO ASSIST IN FACILITATING DETOX PROCESS. WILL CONTINUE TO MONITOR.
[2017-05-15] MEDS: MUPIROCIN 2% OINT 22 GM TUBE NS SCH ×2 (09:41→21:03)
[2017-05-15] MEDS: MULTIVITAMINS,THERAPEUTIC TABLET PO SCH (09:42)
[2017-05-15] MEDS: LORAZEPAM 1 MG TABLET PO SCH ×2 (09:42→21:02)
[2017-05-15] MEDS: FOLIC ACID 1 MG TABLET PO SCH (09:42)
[2017-05-15] MEDS: THIAMINE HCL 100 MG TABLET PO SCH (09:42)
[2017-05-15] MEDS: GABAPENTIN 300 MG CAPSULE PO SCH ×3 (09:42→21:02)
[2017-05-15] MEDS: ASPIRIN 81 MG TAB.CHEW PO SCH (09:42)
[2017-05-15] MEDS: DOXYCYCLINE HYCLATE 100 MG TABLET PO SCH ×2 (09:42→21:02)
[2017-05-15] MEDS: DOCUSATE SODIUM 250 MG CAPSULE PO SCH (09:42)
[2017-05-15 12:00] VITALS: BP 98/65
[2017-05-15 16:00] VITALS: BP 101/60
--- NOTE | 2017-05-15 18:34 | NUR ---
END OF SHIFT: PT COMPLETED SUBUTEX PORTION OF TAPER AND REMAINS ON ON ATIVAN TAPER. HE REPORTED ANXIETY AND BODY ACHES THIS AM BUT STATES THE DETOX MEDS ARE EFFECTIVE. LAST COWS 4 CIWA 1. HE WAS COMPLIANT WITH INCREASED FLUIDS AND GROUPS. WILL PASS SHIFT REPORT TO ONCOMING NURSE.
--- NOTE | 2017-05-15 19:30 | NUR ---
START OF SHIFT Pt. is 31 year old male admitted on 05/10/17 for Xanax, ETOH, Heroin and Methamphetamine dependency. Pt continues on a 5 day Ativan taper,completed Subutex taper. Pt is on full code status,regular diet and giles no allergies.Pt continues on fall and seizure precautions. Pt is A/O X 4, is compliant with the treatment plan, encouraged adequate PO fluid intake as tolerated. Last COWS score was a 4 and his CIWA was a 1.All Safety measures in place. Call light kept within reach.Will continue to monitor.
[2017-05-15 20:00] VITALS: BP 109/71
--- NOTE | 2017-05-15 22:10 | NUR ---
PRN MEDS PRN MOTRIN GIVEN ORDERED FOR C/O GENERAL BODYACHE.WILL MONITOR FOR EFFECTIVENESS.
--- NOTE | 2017-05-15 23:10 | NUR ---
PRN MOTRIN EFFECTIVE,BODYACHE RELIEVED.
--- NOTE | 2017-05-16 | NUR ---
V/S REFUSED.COWS/CIWA DEFERRED Pt refused to be woken up for V/S.COWS/CIWA deferred due to PT sleeping.All safety measures in place per hospital policy,call light within reach,bed locked in lowest position,side rails up x 2,will continue to monitor.
--- NOTE | 2017-05-16 06:47 | NUR ---
END OF SHIFT Pt. is 31 year old male admitted on 05/10/17 for Xanax, ETOH, Heroin and Methamphetamine dependency. Pt continues on a 5 day Ativan taper,completed Subutex taper. Pt is on full code status,regular diet and has no allergies.Pt continues on fall and seizure precautions. Pt is A/O X 4, is compliant with the treatment plan, encouraged adequate PO fluid intake as tolerated. Last COWS score was a 4 and his CIWA was a 2.PRN Motrin given x 1 with good effect;pt slept 7 hrs; fluid intake was 1000 mls;voided x 2.All Safety measures in place. Call light kept within reach.Will continue to monitor. Addendum: 05/16/17 at 0734 by EFRAÍN MONTE RN ATIVAN/SUBUTEX TAPERS COMPLETED.
--- NOTE | 2017-05-16 07:20 | NUR ---
Start of Shift Report from night nurse: pt is 31 y/o male here for Opiates r/t Heroin 1g IV/d, Benzo r/t Xanax 6mg/d, Etoh r/t Whiskey 1 pint /d, Methamphetamine 0.5g IV/d; Modified Ativan and Subutex tapers ordered and completed doses. Pt is a full code, regular diet, NKA, fall and seizure precautions ordered. Hhx: Anxiety, depression, seizure 7yrs ago r/t benzo w/d, many multiple relapses, Hep C+ RPR + and MRSA + of nares with PO and Topical ATbx ordered with Contact Isolations carried out as ordered. V/S stable. Skin is intact. PRN Motrin given last night. No new labs endorsed to me. Last COWS 4 CIWA 2. Pt is asleep in the room. Will cont. to monitor the pt.
[2017-05-16 08:00] VITALS: BP 99/68
[2017-05-16] MEDS: DOCUSATE SODIUM 250 MG CAPSULE PO SCH (09:00)
[2017-05-16] MEDS: MULTIVITAMINS,THERAPEUTIC TABLET PO SCH (09:53)
[2017-05-16] MEDS: DOXYCYCLINE HYCLATE 100 MG TABLET PO SCH (09:53)
[2017-05-16] MEDS: FOLIC ACID 1 MG TABLET PO SCH (09:53)
[2017-05-16] MEDS: GABAPENTIN 300 MG CAPSULE PO SCH ×3 (09:53→20:46)
[2017-05-16] MEDS: THIAMINE HCL 100 MG TABLET PO SCH (09:53)
[2017-05-16] MEDS: MUPIROCIN 2% OINT 22 GM TUBE NS SCH ×2 (09:53→20:46)
[2017-05-16] MEDS: ASPIRIN 81 MG TAB.CHEW PO SCH (09:53)
[2017-05-16 12:00] VITALS: BP 115/69
[2017-05-16 14:03] LABS: *AMPHETAMINE, URINE NEGATIVE (NEGATIVE); *BARBITURATE, URINE NEGATIVE (NEGATIVE); *CANNABINOID, URINE NEGATIVE (NEGATIVE); *COCCAINE, URINE NEGATIVE (NEGATIVE); *OPIATE, URINE NEGATIVE (NEGATIVE); *PHENCYCLIDINE SCREEN,URINE NEGATIVE (NEGATIVE)
--- NOTE | 2017-05-16 14:40 | NUR ---
PRN Medication Administration Pt is in room with in bed with restless feet and c/o anxiety, V/S stable with BP 122/75 HR 94; PRN Clonidine 0.1mg given as ordered. Will reassess in 1H.
--- NOTE | 2017-05-16 15:30 | NUR ---
Reassessment Pt is getting ready to go to group therapy with standing in room and eating a snack while stating that he feels good and a lot less anxious; Clonidine is effective. Will cont. to monitor the pt .
[2017-05-16 16:00] VITALS: BP 107/65
--- NOTE | 2017-05-16 19:35 | NUR ---
End of Shift Report to night nurse: pt is 31 y/o male here for Opiates r/t Heroin 1g IV/d, Benzo r/t Xanax 6mg/d, Etoh r/t Whiskey 1 pint /d, Methamphetamine 0.5g IV/d; Modified Ativan and Subutex tapers ordered and completed doses. Pt is a full code, regular diet, NKA, fall and seizure precautions ordered. Hhx: Anxiety, depression, seizure 7yrs ago r/t benzo w/d, many multiple relapses, Hep C+ RPR + and MRSA + of nares with PO and Topical ATbx ordered with Contact Isolations carried out as ordered. V/S stable. Skin is intact. PRN Clonidine given for anxiety at 1440pm. No hallucinations, delusions of suicidal ideations noted during my shift. Pt participated in the group therapy and activities. New Orders for D/C tomorrow. No new labs during my shift. Last COWS 2 CIWA 1.
[2017-05-16 20:00] VITALS: BP 116/71
--- NOTE | 2017-05-16 20:00 | NUR ---
Start of Shift Patient is a 31-year old, male, admitted for Heroin, Xanax, ETOH and Methamphetamine Dependence. On 6-day Ativan and 5-day Subutex tapers, completed and with no adverse reaction noted. With Hx of Anxiety, Depression, Seizure 7yrs ago r/t benzo withdrawals, Hep C, RPR, and MRSA of nares. Pt tested positive for MRSA of Nares, on Bactroban. Pt is Full Code, on Regular Diet and with NKA. Fall, universal, safety and seizure prec in place. Pt is AAOx4 and no SOB noted. Pt is ambulatory with steady gait and with intact skin. On contact isolation. Call light within reach. Latest COWS=1, CIWA=1. Will continue to monitor.
[2017-05-16] MEDS ORDERED: CLON0.1T14 PO (23:10)
[2017-05-16] MEDS ORDERED: GABA-534 PO (23:10)
[2017-05-17] VITALS: BP 115/76
[2017-05-17 04:00] VITALS: BP 111/74
--- NOTE | 2017-05-17 07:05 | NUR ---
Start of Shift Endorsement received from nightshift nurse. Pt is a 31 y/o male admitted for xanax, heroin, alcohol and methamphetamine dependence. Pt has been placed on a 5 day Ativan and 5 day Subutex taper. Pt has completed both taper and has been scheduled for discharge today, 05/17/17. All discharge documentation has been completed, discharge educated has been completed. Pt reports readiness for discharge. Pt did not receive any PRN Medications. Pt reports sleeping 8 hours. PT is alert and oriented x4. Pt is in STABLE condition at this time. Remains compliant with medication and diet regimen. All needs have been met, All safety measures in place per hospital policy. Bed in lowest position, side rails up x2, call-light within reach. Will continue to monitor
--- NOTE | 2017-05-17 07:27 | NUR ---
End of Shift Patient is a 31-year old, male, admitted for Heroin, Xanax, ETOH and Methamphetamine Dependence. On 6-day Ativan and 5-day Subutex tapers, completed and with no adverse reaction noted. With Hx of Anxiety, Depression, Seizure 7yrs ago r/t benzo withdrawals, Hep C, RPR, and MRSA of nares. Pt tested positive for MRSA of Nares, on Bactroban. Pt is Full Code, on Regular Diet and with NKA. Fall, universal, safety and seizure prec in place. Pt is AAOx4 and no SOB noted. Pt is ambulatory with steady gait and with intact skin. On contact isolation. Call light within reach. Latest COWS=1, CIWA=1, slept for 8 hours. Endorsed to AM shift nurse for continuity of care.
[2017-05-17 08:00] VITALS: BP 107/73
[2017-05-17] MEDS: GABAPENTIN 300 MG CAPSULE PO SCH (08:30)
[2017-05-17] MEDS: DOCUSATE SODIUM 250 MG CAPSULE PO SCH (08:30)
[2017-05-17] MEDS: THIAMINE HCL 100 MG TABLET PO SCH (08:30)
[2017-05-17] MEDS: ASPIRIN 81 MG TAB.CHEW PO SCH (08:30)
[2017-05-17] MEDS: MUPIROCIN 2% OINT 22 GM TUBE NS SCH (08:30)
[2017-05-17] MEDS: FOLIC ACID 1 MG TABLET PO SCH (08:30)
[2017-05-17] MEDS: MULTIVITAMINS,THERAPEUTIC TABLET PO SCH (08:30)
--- NOTE | 2017-05-17 09:38 | NUR ---
Discharge note PT has been discharged from [facility] to [facility]. PT is in Stable condition, VS WNL. Denies suicidal and homicidal ideations at this time. . All documentation has been completed, paperwork signed and dated. Pt left with all of his belongings, medications and prescriptions. Pt has been discharged from [facility] on 05/17/17 at 0938. has been Notified.
== END 2017-05-17 09:38 | disposition other institution (70) | DRG 895 ==
LOC: SRC 05-10 16:03
PROVIDERS: ADMIT Internal Medicine; ATTEND Internal Medicine
PROC: HZ2ZZZZ Detoxification Services for Substance Abuse Treatment (ICD-10-PCS; principal; 2017-05-10)
PROC: HZ31ZZZ Individual Counseling for Substance Abuse Treatment, Behavioral (ICD-10-PCS; 2017-05-11)
PROC: HZ41ZZZ Group Counseling for Substance Abuse Treatment, Behavioral (ICD-10-PCS; 2017-05-13)
DX: F10.239 Alcohol dependence with withdrawal, unspecified (principal); M62.82 Rhabdomyolysis; Y90.9 Presence of alcohol in blood, level not specified; F11.23 Opioid dependence with withdrawal; F15.23 Other stimulant dependence with withdrawal; Z59.0 Homelessness; Z22.322 Carrier or suspected carrier of Methicillin resistant Staphylococcus aureus; F17.210 Nicotine dependence, cigarettes, uncomplicated; E07.81 Sick-euthyroid syndrome; B19.20 Unspecified viral hepatitis C without hepatic coma; Z86.19 Personal history of other infectious and parasitic diseases; F13.239 Sedative, hypnotic or anxiolytic dependence with withdrawal, unspecified
CPT/HCPCS: 36415; 70030-TC; 80307; 80324; 80361; 83690; 83735; 84443; 85025; 86580; 86592; 86705; 86803; 87340; 87806; A4663; G0480; J3411

== ENCOUNTER 2017-12-31 18:49 | Inpatient (IN) | payer OTHER ==
[~2017-12-31] VITALS: Ht 180.3 cm; Wt 72.6 kg
[~2017-12-31 18:49] MED LIST: ASPI81TA31 PO; CLON0.1T14 PO; GABA-534 PO
[2017-12-31] MEDS ORDERED: MIRALAX 17 GM POWD.PACK PO PRN (20:30)
[2017-12-31] MEDS ORDERED: MAGNESIUM HYDROXIDE 30 ML LIQUID UDC PO PRN (20:30)
[2017-12-31] MEDS ORDERED: ONDANSETRON 4 MG/2 ML VIAL IM PRN (20:30)
[2017-12-31] MEDS ORDERED: ONDANSETRON ODT 4 MG TAB.RAPDIS SL PRN (20:30)
[2017-12-31] MEDS ORDERED: HYDROXYZINE PAMOATE 25 MG CAPSULE PO PRN (20:30)
[2017-12-31] MEDS ORDERED: METHOCARBAMOL 750 MG TABLET PO PRN (20:30)
[2017-12-31] MEDS ORDERED: LORAZEPAM 1 MG TABLET PO PRN (20:30)
[2017-12-31] MEDS ORDERED: MAG HYDROX/AL HYDROX/SIMETH 30 ML LIQUID UDC PO PRN (20:30)
[2017-12-31] MEDS ORDERED: BUPRENORPHINE HCL 2 MG TAB.SUBL SL PRN (20:30)
[2017-12-31] MEDS ORDERED: LOPERAMIDE HCL 2 MG CAPSULE PO PRN ×2 (20:30)
[2017-12-31] MEDS ORDERED: ACETAMINOPHEN 325 MG TABLET PO PRN (20:30)
[2017-12-31] MEDS ORDERED: DICYCLOMINE HCL 20 MG TABLET PO PRN (20:30)
[2017-12-31] MEDS ORDERED: CLONIDINE HCL 0.1 MG TABLET PO PRN (20:30)
[2017-12-31] MEDS ORDERED: IBUPROFEN 600 MG TABLET PO PRN (20:30)
[2017-12-31] MEDS ORDERED: DOCUSATE SODIUM 250 MG CAPSULE PO PRN (20:30)
--- NOTE | 2017-12-31 20:30 | NUR ---
INTAKE ASSESSMENT PT RECEIVED IN INTAKE DEPARTMENT.HE IS A/O X 4.HAS BEEN USING MULTIPLE SUBSTANCES INCLUDING HEROIN,METH,MARIJUANA,BENZOS AND WINE.PT PRESENTS ANXIOUS,RESTLESS,UNABLE TO SIT STILL,YAWNING,C/O FEELING TIRED,STATED HE HAS NOT SLEPT FOR 4 DAYS.SPEECH IS CLEAR AND COHERENT.GAIT IS STEADY. B/P=125/69,T=97.7,P=97,R=18.O2 SAT=97%.PT IS IN STABLE CONDITION TO PROCEED TO DETOX UNIT.UNIT RULES,Q 4 H V/S AND COWS/CIWA ASSESSMENTS EXPLAINED.PT VERBALIZES UNDERSTANDING.
--- NOTE | 2017-12-31 21:00 | NUR ---
ADMISSION NOTE-- HT-5 FEET; 11 INCHES. WT-160 POUNDS B/P=126/69;T=97.7;P=97;R=18;O2 SAT=07%. COWS=8; CIWA=6. NKA;FULL CODE;REGULAR DIET. PCP - . Admitting 32 y/o to [facility] for OPIATE/HEROIN/BENZO dependency.Pt has history of polysubstance abuse.He started drinking wine at age of 14,used MJ when he was 16 yrs old and began using Heroin IV and taking benzos when he turned 21.He was discharged from [facility] on 05/17/17 ,stayed sober for 4 months and then relapsed due to multiple personal problems.Pt is A/A/O X 4,has NKA,placed on a regular diet,full code status and fall/seizure precautions.Pt denies any history of seizures.PMH of anxiety,depression,Hep C and Syphilis.Pt presented with anxiety,restlessness,unable to sit still,c/o having stomach spasms,generalized aches and pain,yawning during assessment,c/o feeling tired,has not slept for 4 days.Skin is intact,warm and dry to touch.Right middle finger has a burn scar in the healing stage.Pt also has a scab on his forehead and some on the back d/t picking on himself.Breathing is even and non labored;lungs are clear bilaterally;abdomen is soft and non tender with bowel sounds present in all 4 quadrants;pt stated he had a bowel movement today.Pt denies any SI/HI/AH/VH.Pt oriented to room and unit,snacks provided;care plan and safety checks initiated.Dr Gonzalez is aware,orders placed. All safety measures in place per hospital policy; bed is locked in low locked position with side rails up x 2 and call light within reach. Will continue to monitor for safe detox. SUBSTANCE USE HX 1)HEROIN-1 GRAM IV ON A DAILY BASIS,LAST USED ON 12/31/16. 2)METH-PT SMOKES 1 GRAM EVERY OTHER DAY,LAST USED 12/29/17. 3)WINE-PT DRINKS 300 MLS EVERY OTHER DAY,LAST DRINK WAS ON 12/31/17. 4)MARIJUANA-PT SMOKES UNKNOWN AMOUNT DAILY,LAST SMOKED ON 12/31/17 5)XANAX-PT TAKES 2 MG TWICE A WEEK;LAST TAKEN ON 12/31/17 6)ATIVAN-0.5 MG TWICE A WEEK,LAST TAKEN ON 12/27/17. RECENT TX HX [facility] -10 MAY 2018 [facility] -2015 Addendum: 01/01/18 at 0203 by EFRAÍN MONTE RN PER PREVIOUS ADMISSION RECORDS,PT HAS A HX OF SEIZURES D/T WITHDRAWALS.
[2017-12-31] MEDS ORDERED: BUPR1FIL3 SL (21:05)
[2017-12-31 21:11] LABS: *AMPHETAMINE, URINE POSITIVE (NEGATIVE); *BARBITURATE, URINE NEGATIVE (NEGATIVE); *CANNABINOID, URINE POSITIVE (NEGATIVE); *COCCAINE, URINE NEGATIVE (NEGATIVE); *OPIATE, URINE POSITIVE (NEGATIVE); *PHENCYCLIDINE SCREEN,URINE NEGATIVE (NEGATIVE)
[2017-12-31] MEDS: diphenhydrAMINE 50 MG CAPSULE PO PRN (21:29)
--- NOTE | 2017-12-31 21:30 | NUR ---
PRN MEDS PRN BENTYL,ROBAXIN AND BENADRYL GIVEN ORDERED FOR C/O STOMACH CRAMPS,MYALGIA AND INSOMNIA.PT STARED HE HAS NOT SLEPT FOR 4 DAYS.WILL MONITOR.
[2017-12-31] MEDS ORDERED: LORAZEPAM 1 MG TABLET PO SCH (22:00)
--- NOTE | 2017-12-31 22:30 | NUR ---
PRN F/U PT IS CALM AND RESTING IN BED WITH EYES CLOSED,APPEARS TO BE IN DEEP SLEEP.BREATHING IS EVEN AND NON LABORED,NO S/S OF DISTRESS NOTED,WILL CONTINUE TO MONITOR.
[2017-12-31 23:17] LABS: BASOPHILS % (AUTO) 0.6 % (0.0-2.0); EOSINOPHILS # (AUTO) 0.2 K/uL (0.0-0.7); EOSINOPHILS % (AUTO) 2.4 % (0.0-7.0); HEMATOCRIT 41.8 % (36.7-47.1); HEMOGLOBIN 14.3 g/dL (12.5-16.3); LYMPHOCYTES # (AUTO) 1.6 K/uL (20.0-40.0); LYMPHOCYTES % (AUTO) 24.4 % (20.5-51.5); MEAN CORPUSCULAR HGB CONC 34 g/dL (32.5-36.3); MEAN CORPUSCULAR VOLUME 87.9 fL (73.0-96.2); MONOCYTES # (AUTO) 0.3 K/uL (2.0-10.0); NEUTROPHILS # (AUTO) 4.3 K/uL (1.8-8.9); NEUTROPHILS % (AUTO) 67.6 % (38.5-71.5); PLATELET COUNT (AUTO) 240 K/uL (152-348); RED BLOOD CELL COUNT(AUTO) 4.76 MIL/uL (4.06-5.63); WHITE BLOOD COUNT (AUTO) 6.4 K/uL (3.6-10.2)
[2017-12-31 23:23] LABS: ETHANOL < 3 MG/DL (0-0)
[2017-12-31 23:26] LABS: ALANINE AMINOTRANSFERASE 15 U/L (16-63); ALKALINE PHOSPHATASE 73 U/L (50-136); ASPARTATE AMINOTRANSFERASE 8 U/L (15-37); BILIRUBIN,TOTAL 0.2 mg/dL (0.2-1.0); CARBON DIOXIDE 24 mmol/L (21-32); CHLORIDE 106 mmol/L (98-107); GLUCOSE 154 mg/dL (74-106); MAGNESIUM 1.7 mg/dL (1.8-2.4); POTASSIUM 4.1 mmol/L (3.5-5.1); TOTAL PROTEIN, SERUM 6.9 g/dL (6.4-8.2); UREA NITROGEN, BLOOD 13 mg/dL (7-18)
--- NOTE | 2018-01-01 | NUR ---
V/S REFUSED/COWS DEFERRED Pt noted to be in deep sleep,refused v/s.COWS deferred d/t sleep,will continue to monitor.
[2018-01-01] MEDS ORDERED: NEOM28.36 TP (01:33)
[2018-01-01] MEDS ORDERED: CARB15DR OP (01:34)
[2018-01-01] MEDS ORDERED: HYDR453.3 TP (01:38)
[2018-01-01 04:00] VITALS: BP 129/79
--- NOTE | 2018-01-01 06:51 | NUR ---
END OF SHIFT Pt is a 32 y/o male admitted to [facility] for OPIATE/HEROIN/BENZO dependency. Pt is A/A/O X 4,has NKA,placed on a regular diet,full code status and fall/seizure precautions.Pt has history of seizures d/t withdrawals.PMH of anxiety,depression,Hep C and Syphilis.Pt presented with anxiety,restlessness,unable to sit still,c/o having stomach spasms,generalized aches and pain,yawning during assessment,c/o feeling tired,has not slept for 4 days.PRN meds Benadryl,bentyl and Robaxin were given with good effect.Pt slept 7 hrs,fluid intake was 1546 mls,voided x 1 .PO fluids encouraged as tolerated.Last COWS = 6. All safety measures in place per hospital policy; bed is locked in low locked position with side rails up x 2 and call light within reach. Will continue to monitor for safe detox. Addendum: 01/01/18 at 0707 by EFRAÍN MONTE RN LAST COWS 4.
--- NOTE | 2018-01-01 07:05 | NUR ---
END OF SHIFT NOTE Patient is alert oriented x4. 32 year old male admitted for OPIOID/HEROIN/BENZO/ETOH dependence. Patient has PMH of Anxiety, depression hep-c, seizure, syphilis. Patient cont on 5 days Subutex taper tolerating well. Medications were effective in reducing withdrawal symptoms. Patient did not receive any PRN during shift. Skin intact warm and dry to touch. Last COWS score was 6. Patient remained compliant with treatment plan and medication regime. Encourage Po fluids as tolerated. All safety measures in place, Call light within reach. Patient endorsed to night nurse in stable condition. Addendum: 01/01/18 at 1906 by JOE AGUILAR LVN correct time for end of shift is 5.
--- NOTE | 2018-01-01 07:49 | NUR ---
START OF SHIFT NOTE Received report from night nurse, 32 year old male admitted for OPIATE/HEROIN/BENZO/ETOH dependence. Patient reported PMH of anxiety,depression,Hep C and Syphilis and history of withdrawal induced seizures. Per endorsement patient was given PRN Bentyl/Benadryl /Robaxin and x1 dose of Ativan. Received patient alert awake oriented x4 educated pt regarding plan of the day and medication regimen with good verbal understanding. Safety measures in place, Call light within reach. Will cont to monitor.
[2018-01-01 08:00] VITALS: BP 126/77
[2018-01-01] MEDS: BUPRENORPHINE HCL 2 MG TAB.SUBL SL SCH ×3 (08:48→20:30)
[2018-01-01] MEDS ORDERED: TUBERCULIN,PURIF.PROT.DERIV. 5 TU/0.1 ML TEST ID ONE (09:00)
[2018-01-01] MEDS ORDERED: MAGNESIUM OXIDE 400 MG TABLET PO ONE (09:00)
[2018-01-01 12:00] VITALS: BP 117/69
[2018-01-01 16:00] VITALS: BP 124/81
[2018-01-01] MEDS: NEOSPORIN OINTMENT TOP SCH (16:39)
--- NOTE | 2018-01-01 19:15 | NUR ---
START OF SHIFT Received 32 year old male patient admitted on 12/31/17 for ETOH, opiate, benzodiazepine, methamphetamine and marijuana dependency. Pt is full code with NKA. He reports a PMHx of anxiety, depression, hep C, syphilis, and seizure d/t withdrawal. He reports using Meth 1 gram every other day for 3 months. Last dose was 1 gram on 12/29/17. Heroin 1 gram IV for 3 months. Last dose was 1 gram on 12/31/17. Wine 300mL daily for 3 months. Last dose was 2 glasses on 12/31/17. Xanax 2 mg for 3 months. Last dose 2 mg on 12/31/17. Ativan 0.5 mg for 3 months. Last dose was 0.5 mg on 12/27/17. And unknown amount of marijuana for 3 months. Pt currently receiving 5 day Subutex taper and tolerating well. Per endorsement, pt did not receive or request any PRN medications. Pt is alert and oriented x4, breathing even and unlabored. Safety measures in place. Will continue to monitor.
[2018-01-01 20:00] VITALS: BP 140/80
[2018-01-01] MEDS: GABAPENTIN 300 MG CAPSULE PO SCH (20:30)
[2018-01-01] MEDS: diphenhydrAMINE 50 MG CAPSULE PO PRN (20:30)
--- NOTE | 2018-01-01 20:30 | NUR ---
PRN BENADRYL Pt complains of insomnia. PRN Benadryl administered as ordered. Safety measures in place. Will monitor effectiveness.
--- NOTE | 2018-01-01 21:30 | NUR ---
PRN REASSESSMENT Medication effective. Pt is lying in bed with eyes closed noted to be asleep. Breathing is even and unlabored. Safety measures in place. Will monitor.
--- NOTE | 2018-01-02 | NUR ---
VITALS REFUSED, COWS/CIWA DEFERRED 0000 vitals refused. COWS and CIWA deferred d/t pt lying in bed with eyes closed noted to be asleep. Safety measures in place. Will monitor.
--- NOTE | 2018-01-02 04:00 | NUR ---
VITALS REFUSED, COWS/CIWA DEFERRED 0400 vitals refused. COWS and CIWA deferred d/t pt lying in bed with eyes closed noted to be asleep. Safety measures in place. Will monitor.
--- NOTE | 2018-01-02 07:05 | NUR ---
END OF SHIFT Pt is lying in bed with eyes closed and is asleep. He continues on a 5 day Subutex taper and tolerating well. Pt was noted to be withdrawn, fatigued, and depressed during shift. Pt complained of insomnia and received PRN Benadryl at 2030. He slept a total of 9 hrs, Intake: 1,151mL, Void: x2, BM:0, COWS:8. Pt remains alert and oriented x4, breathing even and unlabored. Safety measures in place. Will endorse to AM shift.
--- NOTE | 2018-01-02 07:31 | NUR ---
BEGINNING OF SHIFT Patient endorsement report received from maintenance mechanic 2nd shift nurse, all pertinent information discussed. Patient is a 32 year old male with admitting Dx: Opiate dependence. with substance use of: methamphetamine, wine, marijuana, and benzodiazepines. Patient currently with ongoing 5 day Subutex taper as ordered, and is scheduled to begin day 2 of taper. Per maintenance mechanic 2nd shift patient with last cow score of: 8, received PRN: Benadryl. Slept for 9 hours. Fall and seizure precautions observed at all times. Patient received awake, alert and oriented x4, educated regarding plan of care for the day, will continue to monitor closely. safety measures in place.
[2018-01-02 08:38] VITALS: BP 134/92
[2018-01-02] MEDS: GABAPENTIN 300 MG CAPSULE PO SCH ×3 (08:39→21:07)
[2018-01-02] MEDS: NEOSPORIN OINTMENT TOP SCH ×2 (08:40→16:18)
[2018-01-02] MEDS ORDERED: BUPRENORPHINE HCL 2 MG TAB.SUBL SL SCH (09:00)
--- NOTE | 2018-01-02 10:00 | NUR ---
Therapist prompted client about group times. Client stated he won't be attending groups today because he does not feel well.
[2018-01-02 11:07] LABS: HEPATITIS B SURFACE AG Negative (Negative)
[2018-01-02 13:36] VITALS: BP 121/80
[2018-01-02] MEDS ORDERED: LORAZEPAM 1 MG TABLET PO PRN (14:00)
[2018-01-02] MEDS: BUPRENORPHINE HCL 2 MG TAB.SUBL SL SCH ×2 (14:28→21:06)
--- NOTE | 2018-01-02 16:57 | NUR ---
Client was prompted to attend daily group therapy sessions. Client stated that he will probably not be attending groups at this time.
[2018-01-02 17:48] VITALS: BP 135/81
--- NOTE | 2018-01-02 18:58 | NUR ---
END OF SHIFT Patient alert and oriented x4, compliant with plan of care. Patient with admitting Dx: opiate withdrawal. Continues under very close observation for any s/sx of withdrawal. Continues on 5 day Subutex taper as ordered. Vital signs monitored closely during shift. During shift patient presented with: sweats, restlessness, dilated pupils, bone and joint aches, tremors, yawning, irritability, goose flesh, clammy skin. Also noted with worried facial expression and avoidant eye contact. Patients flat affect, noted worried at times. During shift patient encouraged to develop coping skills and utilization of non pharmacological interventions provided. Encouraged to participate in therapy session. Encouraged diversional activities to alleviate anxiety. 0900 COW: 12; 1300 COW: 10; 1700 COW: 8. Denies any SI/HI. Noted with good appetite during shift, encouraged adequate PO fluid intake as tolerated. All needs met and rendered, call light kept within reach. Fall and seizure precautions observed and in place at all times. Patient endorsed to awake overnight counselor nurse, all pertinent information discussed.
--- NOTE | 2018-01-02 19:10 | NUR ---
START OF SHIFT 302 Patient is 32-year-old male admitted on 12/31/17 for polysubstance detox: meth, heroin, wine (ETOH), cannabis, xanax, and ativan. Patient is FULL code status, on a regular diet, with NKA. Patient has a past medical history of anxiety, depression, Hep C, syphilis, and a history of seizures related to withdrawal. Patient is on seizure and fall precautions. Patient is currently on a 5-day Subutex taper, tolerating well. Upon assessment, patient is in bed watching television, awake and oriented x4, skin dry and intact with a small scab on his forehead. Patient states he feels better than yesterday. Safety measures in place, side rails up x2, bed locked in low position, call light within reach. Will continue to monitor.
[2018-01-02 20:00] VITALS: BP 139/80
[2018-01-02] MEDS: QUETIAPINE FUMARATE 25 MG TABLET PO SCH (21:06)
[2018-01-02] MEDS: CLONIDINE HCL 0.1 MG TABLET PO SCH (21:06)
[2018-01-02] MEDS: BACLOFEN 10 MG TABLET PO SCH (21:06)
--- NOTE | 2018-01-03 | NUR ---
VITALS REFUSED, COWS DEFERRED Patient refused vital signs, respirations even and unlabored, 16/min. COWS deferred due to patient sleeping. Will continue to monitor. Addendum: 01/03/18 at 0732 by LAURA SWEENEY LVN KRISTEN hickman as well.
--- NOTE | 2018-01-03 04:00 | NUR ---
VITALS REFUSED, COWS DEFERRED Patient refused vital signs, respirations even and unlabored, 16/min. COWS deferred due to patient sleeping. Will continue to monitor. Addendum: 01/03/18 at 0733 by LAURA SWEENEY LVN KRISTEN was also deferred due to patient sleeping.
--- NOTE | 2018-01-03 07:20 | NUR ---
END OF SHIFT Patient is 32-year-old male admitted on 12/31/17 for polysubstance detox: meth, heroin, wine (ETOH), cannabis, xanax, and ativan. Patient slept for 8 hours, total intake of 796 mL, void x2, stool x1. No PRNs were given. Last COWS was 11, last CIWA was 8. Safety measures in place, side rails up x2, bed locked in low position, call light within reach. Will endorse to day shift.
--- NOTE | 2018-01-03 07:40 | NUR ---
START OF SHIFT Rcvd endorse form ongoing nurse, client is in room, a/o x 3, he presents with anxious mood, flat affect, moist skin, goosebumps, enlarged pupil, stomach cramps, and fatigue. Self-inflicted skin picking on face and arms Triple antibiotic ointment BID. Client's room has scattered clothes on the floor and open bags of chips and snacks on table. Client denies any N/V/D, but states that he has not much of an appetite since admission. Encourage client to increase PO fluid as tolerated to facilitate detox. Encourage client to attend group therapy for skills to maintain sober. Client is admitted for withdrawal from heroin, alcohol, and benzodiazepines. He is on 4 day Subutex taper (day 3), Ativan 1 mg PO q2h PRN CIWA 8-14, Ativan 2 mg PO q2h PRN CIWA 15+ and notify . Last CIWA 8 11 @ 1999. Client slept 8.5 hrs. The patient reports a history of withdrawal-induced seizures. Side rails x 2 up/padded. Call light within reach.
[2018-01-03 08:15] VITALS: BP 120/75
[2018-01-03] MEDS: BACLOFEN 10 MG TABLET PO SCH ×2 (09:00→21:29)
[2018-01-03] MEDS: GABAPENTIN 300 MG CAPSULE PO SCH ×3 (09:00→21:28)
[2018-01-03] MEDS: BUPRENORPHINE HCL 2 MG TAB.SUBL SL SCH ×3 (09:00→21:28)
--- NOTE | 2018-01-03 09:00 | NUR ---
Zero induration noted at PPD test site on R forearm.
[2018-01-03] MEDS: CLONIDINE HCL 0.1 MG TABLET PO SCH ×2 (09:01→21:27)
[2018-01-03] MEDS: NEOSPORIN OINTMENT TOP SCH ×2 (09:03→16:08)
--- NOTE | 2018-01-03 10:55 | NUR ---
verbal education provided regarding FLU/PNA vaccine, client verbalized understanding, but still refused the vaccines.
[2018-01-03 12:20] VITALS: BP 111/66
[2018-01-03 16:55] VITALS: BP 105/66
--- NOTE | 2018-01-03 19:14 | NUR ---
END OF SHIFT Endorse client to incoming nurse, client is in room, a/o x 3, he continues to present with anxious mood, flat affect, fatigued, he isolates himself in his room. Does not participate in group therapy. Adequate PO fluid intake 1200mL, void x 2, stool x 1. Client denies any N/V/D. Client is admitted for withdrawal from heroin, alcohol, and benzodiazepines. He is on 4 day Subutex taper (day 3), Ativan 1 mg PO q2h PRN CIWA 8-14, Ativan 2 mg PO q2h PRN CIWA 15+ and notify MD. Last CIWA 7/ COWS 9 @ 1600. Side rails x 2 up/padded. Call light within reach.
--- NOTE | 2018-01-03 19:30 | NUR ---
START OF SHIFT Received 32 year old male patient. Pt is lying in bed with eyes closed, watching TV. Pt is alert and oriented x4. Appears older than stated age. Pt noted with garbage around room. Appears anxious and irritable with flat affect. Pt is withdrawn and guarded. Per endorsement, did not attend group activities and he did not receive or request PRN medications. Pt currently receiving a 4 day Subutex taper and is tolerating well. Safety measures in place. Will continue to monitor.
[2018-01-03 20:00] VITALS: BP 127/74
[2018-01-03] MEDS: QUETIAPINE FUMARATE 25 MG TABLET PO SCH (21:28)
--- NOTE | 2018-01-04 | NUR ---
VITALS REFUSED, COWS DEFERRED 0000 vitals refused by pt at beginning of shift. Pt stated he did not want to be woken up for vitals. COWS deferred. Pt lying in bed with eyes closed noted to be asleep. Will continue to monitor.
--- NOTE | 2018-01-04 04:15 | NUR ---
VITALS REFUSED, COWS DEFERRED 0400 vitals refused by pt at beginning of shift. Pt stated he did not want to be woken up for vitals. COWS deferred. Pt lying in bed with eyes closed noted to be asleep. Will continue to monitor.
--- NOTE | 2018-01-04 07:09 | NUR ---
END OF SHIFT Pt is a 32 year old male patient. Pt is lying in bed with eyes closed noted to asleep. Pt remained isolative and stayed in his room most of the shift. He did not receive or request PRN medications. He slept a total of 7hrs, Intake:850mL, Void:x1, BM:0, COWS:7. He remains alert and oriented x4. Safety measures in place. Endorsed to AM shift.
--- NOTE | 2018-01-04 07:38 | NUR ---
START OF SHIFT Rcvd endorse from ongoing nurse, client is in bed, a/o x 3, scattered clothes and open snacks hazardously around his room, primary nurse cleaned floors and encourage client to keep his environment clean and encourage for him to take a shower, he presents with irritable mood, flat affect. He reports chills, body aches, upset stomach, and cravings for substance use. Encourage client to attend group therapy for skills to maintain sober. Encourage to drink PO fluids to maintain hydration and to assist with detox, he verbalized understanding. Client denies any N/V/D. Client is admitted for withdrawal from heroin, alcohol, and benzodiazepines. He is on last of 4 day Subutex taper, Ativan 2 mg PO q4h PRN for agitation. Last CIWA 7 @ 1999. Client slept 7 hrs. The patient reports a history of withdrawal-induced seizures. Side rails x 2 up/padded. Call light within reach.
[2018-01-04 08:19] VITALS: BP 116/75
[2018-01-04] MEDS ORDERED: BUPRENORPHINE HCL 2 MG TAB.SUBL SL SCH (09:00)
[2018-01-04] MEDS: NEOSPORIN OINTMENT TOP SCH ×2 (09:00→17:00)
[2018-01-04] MEDS: CLONIDINE HCL 0.1 MG TABLET PO SCH ×2 (09:15→21:30)
[2018-01-04] MEDS: GABAPENTIN 300 MG CAPSULE PO SCH ×3 (09:15→21:29)
[2018-01-04] MEDS: BACLOFEN 10 MG TABLET PO SCH ×2 (09:15→21:29)
[2018-01-04 12:30] VITALS: BP 113/66
[2018-01-04 16:55] VITALS: BP 100/57
--- NOTE | 2018-01-04 19:30 | NUR ---
START OF SHIFT Received 32 year old male patient. Pt is lying in bed watching TV. Noted to be isolated and withdrawn. Per endorsement, pt is scheduled to be DC tomorrow to [facility]. Pt did not receive or request PRN medications. Last COWS:5, CIWA:4. Pt is alert and oriented x4, breathing is even and unlabored. Safety measures in place. Will continue to monitor.
--- NOTE | 2018-01-04 19:30 | NUR ---
END OF SHIFT Endorse client to incoming nurse, client is in room, a/o x 3, he present with depressed mood, flat affect, Does not participate in group therapy. Adequate PO fluid intake 01506wO, void x 4. Client denies any N/V/D. Client is admitted for withdrawal from heroin, alcohol, and benzodiazepines. He completed 4 day Subutex taper. Last CIWA 4/ COWS 5 @ 1600. Side rails x 2 up/padded. Call light within reach.
[2018-01-04 20:00] VITALS: BP 122/76
[2018-01-04] MEDS ORDERED: DICY20TA28 PO (20:55)
[2018-01-04] MEDS ORDERED: HYDR-3895 PO (20:55)
[2018-01-04] MEDS ORDERED: CLON0.1T14 PO (20:55)
[2018-01-04] MEDS ORDERED: IBUP-1955 PO (20:55)
[2018-01-04] MEDS ORDERED: GABA-534 PO (20:55)
[2018-01-04] MEDS ORDERED: METH-406 PO (20:55)
[2018-01-04] MEDS ORDERED: QUET25TA PO (20:55)
[2018-01-04] MEDS: QUETIAPINE FUMARATE 25 MG TABLET PO SCH (21:28)
--- NOTE | 2018-01-05 | NUR ---
VITALS REFUSED, COWS DEFERRED 0000 vitals refused by pt. COWS deferred. Pt lying in bed with eyes closed noted to be asleep. Will continue to monitor.
--- NOTE | 2018-01-05 04:16 | NUR ---
VITALS REFUSED, COWS DEFERRED 0400 vitals refused by pt. COWS deferred. Pt lying in bed with eyes closed noted to be asleep. Will continue to monitor.
--- NOTE | 2018-01-05 07:14 | NUR ---
END OF SHIFT Pt is a 32 year old male patient. Pt is lying in bed with eyes closed noted to be asleep. He did not receive or request PRN medications. He attended the comedy show, and went out to smoke once during my shift. He slept a total of 6 hrs, Intake: 1296mL, Void:x1, BM:x1, COWS: 6, CIWA:5. Pt remains alert and oriented x4, breathing is even and unlabored. Safety measures in place. Endorsed to AM shift.
--- NOTE | 2018-01-05 07:19 | NUR ---
BEGINNING OF SHIFT Patient endorsement report received from lead java software engineer nurse, all pertinent information discussed. Patient is a 32 year old male with admitting Dx: Opiate dependence. with substance use of: methamphetamine, wine, marijuana, and benzodiazepines. Patient completed 5 day Subutex taper as ordered, and is scheduled to be discharged this morning, noted self motivated towards sobriety. Per lead java software engineer patient with last cow score of: 6, last ciwa: 5 received no PRNs Slept for 6 hours. Fall and seizure precautions observed at all times. Patient received awake, alert and oriented x4, educated regarding plan of care for the day, will continue to monitor closely. safety measures in place.
[2018-01-05 08:03] VITALS: BP 119/81
[2018-01-05 08:45] VITALS: BP 119/81
[2018-01-05] MEDS: CLONIDINE HCL 0.1 MG TABLET PO SCH (08:45)
[2018-01-05] MEDS: GABAPENTIN 300 MG CAPSULE PO SCH (08:45)
[2018-01-05] MEDS: BACLOFEN 10 MG TABLET PO SCH (08:45)
[2018-01-05] MEDS: NEOSPORIN OINTMENT TOP SCH (08:47)
--- NOTE | 2018-01-05 09:29 | NUR ---
DISCHARGE Patient discharged off the unit at 0929, in stable condition, not in any apparent acute distress. Patient was provided with education and teaching regarding all discharge instructions with good verbal understanding. Patients vital signs WNL. no s/sx of withdrawal noted. last cow score of: 2, last ciwa score of: 2. Patient received no PRNs prior to discharge. all scheduled medications were administered as ordered, well tolerated. patient noted self motivated towards sobriety. Patients discharge instructions, home medications and prescriptions placed in personal duffel bag. patient off the unit at 0929.
== END 2018-01-05 09:29 | disposition home or self-care (01) | DRG 895 ==
LOC: SRC 20:19
PROVIDERS: ADMIT Internal Medicine; ATTEND Internal Medicine
PROC: HZ2ZZZZ Detoxification Services for Substance Abuse Treatment (ICD-10-PCS; principal; 2017-12-31)
PROC: HZ31ZZZ Individual Counseling for Substance Abuse Treatment, Behavioral (ICD-10-PCS; 2018-01-02)
DX: F11.23 Opioid dependence with withdrawal (principal); E83.42 Hypomagnesemia; F10.229 Alcohol dependence with intoxication, unspecified; F10.239 Alcohol dependence with withdrawal, unspecified; F13.10 Sedative, hypnotic or anxiolytic abuse, uncomplicated; Y90.9 Presence of alcohol in blood, level not specified; F15.23 Other stimulant dependence with withdrawal; F12.10 Cannabis abuse, uncomplicated; F17.210 Nicotine dependence, cigarettes, uncomplicated; Z81.1 Family history of alcohol abuse and dependence; Z81.8 Family history of other mental and behavioral disorders; F41.9 Anxiety disorder, unspecified; B19.20 Unspecified viral hepatitis C without hepatic coma; F32.9 Major depressive disorder, single episode, unspecified; Z86.19 Personal history of other infectious and parasitic diseases; R73.9 Hyperglycemia, unspecified
CPT/HCPCS: 36415; 70030-TC; 80307; 83735; 85025; 86580; 86592; 86705; 86803; 87340; 87806; G0480; Q0163